=== PATIENT | male | born 2000 | race Caucasian/White ===

== ENCOUNTER 2023-06-26 02:33 | Emergency (ER) | payer BC ==
[~2023-06-26] VITALS: Ht 167.6 cm; Wt 62.6 kg
[2023-06-26 05:01] VITALS: BP 126/90; TEMP 98.5; O2SAT 99
== END 2023-06-26 05:03 | disposition left against medical advice (07) ==
LOC: ER 02:39
DX: S60.455A Superficial foreign body of left ring finger, initial encounter (principal); Z88.0 Allergy status to penicillin; W22.8XXA Striking against or struck by other objects, initial encounter; Y93.89 Activity, other specified; Y92.89 Other specified places as the place of occurrence of the external cause; Y99.8 Other external cause status